=== PATIENT | male | born 1960 | race Two or more races ===

== ENCOUNTER → 2018-08-20 | Outpatient (CLI) | payer OTHER | END | disposition home or self-care (01) | LOC: MAMO-SONO 09:15 → SONOGRAMA 09:31 | DX: M25.562 Pain in left knee (principal); M25.511 Pain in right shoulder; G56.00 Carpal tunnel syndrome, unspecified upper limb; M75.101 Unspecified rotator cuff tear or rupture of right shoulder, not specified as traumatic; M25.532 Pain in left wrist; M25.531 Pain in right wrist; M62.552 Muscle wasting and atrophy, not elsewhere classified, left thigh; M62.562 Muscle wasting and atrophy, not elsewhere classified, left lower leg; Z12.5 Encounter for screening for malignant neoplasm of prostate; Z12.11 Encounter for screening for malignant neoplasm of colon; E55.9 Vitamin D deficiency, unspecified; E83.49 Other disorders of magnesium metabolism; Z00.01 Encounter for general adult medical examination with abnormal findings ==

== ENCOUNTER → 2018-11-03 | Emergency (ER) | payer OTHER ==
[~2018-11-03] VITALS: Ht 175.3 cm; Wt 77.1 kg
== END | disposition home or self-care (01) ==
LOC: ER 13:46
DX: M54.5 Low back pain (principal)

== ENCOUNTER 2019-06-09 10:17 | Outpatient (CLI) | payer OTHER | END 2019-06-09 10:22 | disposition home or self-care (01) | LOC: NUCLEAR 10:17 | DX: M81.0 Age-related osteoporosis without current pathological fracture (principal) ==

== ENCOUNTER 2019-07-06 10:32 | Outpatient (CLI) | payer OTHER | END 2019-07-06 10:41 | disposition home or self-care (01) | LOC: LAB 10:32 → EDBD 10:32 → LAB 10:41 | DX: D64.89 Other specified anemias (principal); E88.89 Other specified metabolic disorders; D68.8 Other specified coagulation defects; N39.0 Urinary tract infection, site not specified; Z22.322 Carrier or suspected carrier of Methicillin resistant Staphylococcus aureus ==

== ENCOUNTER → 2019-07-06 | Outpatient (CLI) | payer OTHER | END | disposition home or self-care (01) | LOC: RAD 15:24 → EDBD 15:24 | DX: M79.652 Pain in left thigh (principal); M79.605 Pain in left leg; Z76.89 Persons encountering health services in other specified circumstances; M25.551 Pain in right hip ==

== ENCOUNTER 2019-10-14 15:37 | Outpatient (CLI) | payer OTHER | END 2019-10-14 15:41 | disposition home or self-care (01) | LOC: RAD 15:37 | DX: M16.11 Unilateral primary osteoarthritis, right hip (principal) ==

== ENCOUNTER 2019-12-14 15:12 | Outpatient (CLI) | payer OTHER | END 2019-12-14 15:24 | disposition home or self-care (01) | LOC: TOM 15:12 | PROVIDERS: ATTEND Orthopaedic Surgery | DX: M25.511 Pain in right shoulder (principal); M19.011 Primary osteoarthritis, right shoulder; M75.121 Complete rotator cuff tear or rupture of right shoulder, not specified as traumatic ==

== ENCOUNTER 2021-06-29 09:56 | Outpatient (CLI) | payer OTHER | END 2021-06-29 09:59 | disposition home or self-care (01) | LOC: RAD 09:56 | PROVIDERS: ATTEND Orthopaedic Surgery | DX: M25.512 Pain in left shoulder (principal) ==

== ENCOUNTER 2021-09-14 15:43 | Outpatient (CLI) | payer OTHER | END 2021-09-14 15:44 | disposition home or self-care (01) | LOC: RAD 15:43 | PROVIDERS: ATTEND Orthopaedic Surgery | DX: M75.122 Complete rotator cuff tear or rupture of left shoulder, not specified as traumatic (principal); M19.012 Primary osteoarthritis, left shoulder ==

== ENCOUNTER 2021-10-09 08:30 | Day surgery (SDC) | payer OTHER | END 2021-10-09 16:45 | disposition home or self-care (01) | LOC: CIR.AMB 08:30 | PROVIDERS: ATTEND Orthopaedic Surgery | DX: M65.812 Other synovitis and tenosynovitis, left shoulder (principal); M19.012 Primary osteoarthritis, left shoulder; M75.122 Complete rotator cuff tear or rupture of left shoulder, not specified as traumatic; M75.22 Bicipital tendinitis, left shoulder; Z86.16 Personal history of COVID-19; Z20.822 Contact with and (suspected) exposure to COVID-19 ==

== ENCOUNTER → 2022-07-09 12:47 | Outpatient (CLI) | payer OTHER | END | disposition home or self-care (01) | LOC: LAB 12:47 | PROVIDERS: ATTEND Orthopaedic Surgery | DX: D64.9 Anemia, unspecified (principal); E88.9 Metabolic disorder, unspecified; D68.8 Other specified coagulation defects; N39.0 Urinary tract infection, site not specified; A49.02 Methicillin resistant Staphylococcus aureus infection, unspecified site; E11.9 Type 2 diabetes mellitus without complications; I49.9 Cardiac arrhythmia, unspecified; I10 Essential (primary) hypertension ==

== ENCOUNTER 2022-07-17 09:43 | Outpatient (CLI) | payer OTHER | END 2022-07-17 14:40 | disposition home or self-care (01) | LOC: RAD 09:43 | PROVIDERS: ATTEND Orthopaedic Surgery | DX: Z76.89 Persons encountering health services in other specified circumstances (principal) ==

== ENCOUNTER 2022-07-18 08:15 | Inpatient (IN) | payer OTHER ==
[~2022-07-18] VITALS: Ht 172.7 cm; Wt 79.4 kg
== END 2022-07-31 14:30 | disposition home or self-care (01) | DRG 483 ==
LOC: O/R 07-30 06:10 → SURG 07-30 08:15 → SURH 07-30 16:19
PROVIDERS: ADMIT Orthopaedic Surgery; ATTEND Orthopaedic Surgery
PROC: 0RRJ00Z Replacement of Right Shoulder Joint with Reverse Ball and Socket Synthetic Substitute, Open Approach (ICD-10-PCS; principal; 2022-07-30 08:30)
DX: M75.101 Unspecified rotator cuff tear or rupture of right shoulder, not specified as traumatic (principal); Z20.822 Contact with and (suspected) exposure to COVID-19